=== PATIENT | female | born 1955 | race Caucasian/White ===

== ENCOUNTER 2024-05-08 05:24 | Inpatient (IN) | payer MEDICARE ==
[2024-05-07 11:54] LABS: BILIRUBIN,URINE NEGATIVE (Neg); CLARITY,URINE CLEAR (Clear); COLOR,URINE YELLOW (Yellow); GLUCOSE, URINE NEGATIVE (Neg); KETONES,URINE NEGATIVE (Neg); LEUKOCYTE ESTERASE ,URINE NEGATIVE (Neg); NITRITES, URINE NEGATIVE (Neg); OCCULT BLOOD,URINE NEGATIVE (Neg); PH,URINE 5.5 (4.8-8.0); PROTEIN,URINE NEGATIVE (Neg); UROBILINOGEN,URINE 0.2 E.U/dL (0.2-1.0)
[2024-05-07 11:55] LABS: UA COLLECTION TYPE CLN CATCH MIDSTREAM
[2024-05-07 11:59] LABS: BASOPHILS # (AUTO) 0.1 X10'3 (0-0.2); EOSINOPHILS # (AUTO) 0.3 X10'3 (0-0.9); EOSINOPHILS % (AUTO) 2.8 % (0-6); LYMPHOCYTES # (AUTO) 2.7 X10'3 (1.1-4.8); LYMPHOCYTES % (AUTO) 29.6 % (21-51); MEAN CORPUSCULAR HEMOGLOBIN 30.3 PG (27.0-31.0); MEAN CORPUSCULAR HGB CONC 33.3 g/dL (33.0-36.5); MEAN PLATELET VOLUME 8.2 FL (7.4-10.4); MONOCYTES % (AUTO) 11.3 % (2-12); NEUTROPHILS # (AUTO) 4.9 X10'3 (1.8-7.7); NEUTROPHILS % (AUTO) 55.3 % (42-75); PRE OP HEMATOCRIT 41.2 % (35.0-45.0); PRE OP HEMOGLOBIN 13.7 g/dL (12.0-16.0); PRE OP PLATELET COUNT 371 X10'3 (140-440); RED BLOOD COUNT 4.52 X10'6 (4.20-5.60); RED CELL DISTRIBUTION WIDTH 13.8 % (11.5-14.5)
[2024-05-07 12:08] LABS: PRE OP INR 1.1 INR; PRE OP PROTIME 11.4 SECONDS (9.0-12.0)
[2024-05-07 12:17] LABS: ALBUMIN 4.1 G/DL (3.4-5.0); ALBUMIN/GLOBULIN RATIO 1.2 (1.1-1.5); ALKALINE PHOSPHATASE 122 IU/L (46-116); BLOOD UREA NITROGEN 16 MG/DL (7-18); BUN/CREATININE RATIO 22.9 (10.0-20.0); CALCIUM 9.6 MG/DL (8.5-10.1); CHLORIDE 107 MMOL/L (99-107); PRE OP ALT 42 U/L (30-65); PRE OP ANION GAP 8 (8-16); PRE OP AST 20 U/L (10-37); PRE OP BILIRUB, TOTAL 0.5 MG/DL (0.0-1.0); PRE OP GLUCOSE 105 MG/DL (70-104); PRE OP POTASSIUM 3.9 MMOL/L (3.4-5.1); PRE OP SODIUM 144 MMOL/L (135-145); THYROID STIMULATING HORMONE 2.96 ulU/ml (0.34-4.50); TOTAL CARBON DIOXIDE 28.8 MMOL/L (24-32); TOTAL PROTEIN 7.6 G/DL (6.4-8.2); eGFR 83 ML/MIN
[~2024-05-08] VITALS: Ht 180.3 cm; Wt 123.8 kg
[2024-05-08] VITALS (36 sets, daily range): BP systolic 100–175; BP diastolic 50–81; PULSE 54–93; RESP 8–20; TEMP 97.4–97.8; O2SAT 82–100
[~2024-05-08 05:24] MED LIST: APIX5TAB3 PO; DILT360C24 PO; LEVO100T PO; LOSA50TA64 PO; PANT20TA18 PO
[2024-05-08] MEDS ORDERED: phenylephrine inj 50 MG in normal saline 250ml IV solN IV SCH (05:30)
[2024-05-08] MEDS ORDERED: ondansetron/PF 4mg/2ml inj IV PRN ×3 (05:30→08:20)
[2024-05-08] MEDS ORDERED: nitroPRUSSIDE (NIPRIDE) (200MCG/ML) 100ML Drip IV SCH (05:30)
[2024-05-08] MEDS: CEFAZOLIN 3GM/DEXTROSE 150mL 150 ML IV ONE (05:45)
[2024-05-08] MEDS: ringers solution, lacted 1,000 ML IV SCH (06:03)
[2024-05-08] MEDS: VANCOMYCIN/H2O 1.5g/300mL PB 300 ML IV ONE (06:04)
[2024-05-08] MEDS: famotidine 20mg tablet PO ONE (06:29)
[2024-05-08] MEDS ORDERED: protamine sulfate 10mg/ml inj. ONE (06:30)
[2024-05-08] MEDS ORDERED: heparin 1,000 UNITS/NS 500ml 1,500 ML ONE (06:49)
[2024-05-08] MEDS ORDERED: iohexol 350MG/ML 100ml bottle IV ONE (06:49)
[2024-05-08] MEDS ORDERED: LIDOcaine 1% 30ml preserv. free vial ONE (06:49)
[2024-05-08] MEDS ORDERED: iohexol 350 MG/ML 50ML vial IV ONE (06:53)
[2024-05-08] MEDS ORDERED: sevoflurane 250ml liquid IH ONE (07:12)
[2024-05-08] MEDS ORDERED: morphine 4 MG/ML inj SYRINge IV PRN (07:15)
[2024-05-08] MEDS ORDERED: labetalol 20mg/4ml (5mg/ml) syringe IV PRN ×2 (07:15→08:20)
[2024-05-08] MEDS ORDERED: ringers solution, lacted 1,000 ML IV SCH (07:15)
[2024-05-08] MEDS ORDERED: morphine 2 MG/ML inj. syringe IV PRN (07:15)
[2024-05-08] MEDS ORDERED: hydrALAZINE 20mg/ml inj. IV PRN ×2 (07:15→08:20)
[2024-05-08] MEDS ORDERED: fentaNYL/PF 50MCG/1 ML 2ML syringe ONE ×3 (07:20→07:56)
[2024-05-08] MEDS ORDERED: midazolam 1 mg/ML 2ml injection ONE (07:21)
[2024-05-08] MEDS ORDERED: rocuronium 10mg/ml inj IV ONE (07:22)
[2024-05-08] MEDS ORDERED: propofol inj 20 ML IV ONE (07:22)
[2024-05-08] MEDS ORDERED: LIDOcaine 2% (20mg/ml) 5ml vial ONE (07:22)
[2024-05-08] MEDS ORDERED: glycopyrrolate 0.2mg/ml inj ONE (07:33)
[2024-05-08] MEDS ORDERED: neostigmine methylsulfate 1 MG/ML 10ml vial ONE (07:33)
[2024-05-08] MEDS ORDERED: pantoprazole 40mg Tablet.DR PO SCH (08:00)
[2024-05-08] MEDS ORDERED: pantoprazole 40mg Tablet.DR PO PRN (08:20)
[2024-05-08] MEDS ORDERED: potassium CL 10mEq/100ml bag 100 ML IV PRN (08:20)
[2024-05-08] MEDS ORDERED: normal saline 1000ml 1,000 ML IV SCH (08:20)
[2024-05-08] MEDS ORDERED: acetaminophen 325mg tablet PO PRN (08:20)
[2024-05-08] MEDS ORDERED: docusate sod 100mg capsule PO PRN (08:20)
[2024-05-08] MEDS ORDERED: potassium Cl 40MEQ/1/2NS 520ml 520 ML IV PRN (08:20)
[2024-05-08] MEDS ORDERED: potassium Cl 20mEq/100mL bag 100 ML IV PRN (08:20)
[2024-05-08] MEDS ORDERED: magnesium sulf-water 2g/50mL 50 ML IV PRN (08:20)
[2024-05-08] MEDS ORDERED: proCHLORperazine 10 MG/2 ml inj IV PRN (08:20)
[2024-05-08] MEDS ORDERED: diphenhydrAMINE 25mg capsule PO PRN (08:20)
[2024-05-08] MEDS ORDERED: potassium Cl 20 mEq SR tablet PO PRN (08:20)
[2024-05-08] MEDS ORDERED: HYDROcodone/acetaminophen 5mg/325mg tablet PO PRN (08:20)
[2024-05-08] MEDS ORDERED: ALPRAZolam 0.25mg tablet PO PRN (08:20)
[2024-05-08] MEDS ORDERED: potassium Cl 40MEQ/270ML bag 250 ML IV PRN (08:20)
[2024-05-08] MEDS ORDERED: magnesium sulf-water 4G/100mL 100 ML IV PRN (08:20)
[2024-05-08] MEDS: ceFAZolin 1GM/D5W- ADD-VANTAGE 50 ML IV SCH (15:37)
[2024-05-08] MEDS ORDERED: sod chloride 0.9% 10ml flush syringe IV SCH (16:00)
[2024-05-08] MEDS: vancomycin inj 1,000 MG in normal saline 250ml IV soln 250 ML IV SCH (20:33)
[2024-05-09 02:00] VITALS: BP 120/47; PULSE 90; RESP 20; TEMP 97.4; O2SAT 93
[2024-05-09 07:00] VITALS: BP 130/57; PULSE 84; RESP 19; TEMP 97.4; O2SAT 95
[2024-05-09 07:01] LABS: BASOPHILS # (AUTO) 0.1 X10'3 (0-0.2); BASOPHILS % (AUTO) 0.7 % (0-1); EOSINOPHILS # (AUTO) 0.2 X10'3 (0-0.9); HEMATOCRIT 34.8 % (35.0-45.0); HEMOGLOBIN 11.8 g/dl (12.0-16.0); LYMPHOCYTES # (AUTO) 2.8 X10'3 (1.1-4.8); LYMPHOCYTES % (AUTO) 26.4 % (21-51); MEAN CORPUSCULAR HEMOGLOBIN 30.9 PG (27.0-31.0); MEAN CORPUSCULAR HGB CONC 33.8 g/dL (33.0-36.5); MEAN CORPUSCULAR VOLUME 91.4 FL (78-98); MEAN PLATELET VOLUME 8.4 FL (7.4-10.4); MONOCYTES # (AUTO) 1.4 X10'3 (0-0.9); MONOCYTES % (AUTO) 13.5 % (2-12); NEUTROPHILS # (AUTO) 6.1 X10'3 (1.8-7.7); NEUTROPHILS % (AUTO) 57.4 % (42-75); PLATELET COUNT 297 X10'3 (140-440); RED CELL DISTRIBUTION WIDTH 13.7 % (11.5-14.5); WHITE BLOOD COUNT 10.6 X10'3 (4.5-11.0)
[2024-05-09 07:06] LABS: INR 1.1 INR; PROTHROMBIN TIME 11.4 SECONDS (9.0-12.0)
[2024-05-09 07:17] LABS: ALANINE AMINOTRANSFERASE 31 U/L (12-78); ALBUMIN 3.3 G/DL (3.4-5.0); ALKALINE PHOSPHATASE 96 IU/L (46-116); ANION GAP 3 (8-16); ASPARTATE AMINO TRANSFERASE 19 U/L (10-37); BILIRUBIN,TOTAL 0.6 MG/DL (0.1-1.0); BLOOD UREA NITROGEN 16 MG/DL (7-18); CHLORIDE 109 MMOL/L (99-107); GLUCOSE 165 MG/DL (70-104); MAGNESIUM 1.8 MG/DL (1.5-2.4); PRO BRAIN NATRIURETIC PEPTIDE 227 PG/ML (0-125); SODIUM 140 MMOL/L (135-145); TOTAL PROTEIN 6.6 G/DL (6.4-8.2); eCRCL 75 ML/MIN; eGFR 71 ML/MIN
[2024-05-09 07:45] LABS: CALCIUM 8.6 MG/DL (8.5-10.1)
[2024-05-09] MEDS: diltiazem CD 180mg cap (once-daily) PO SCH (08:30)
[2024-05-09] MEDS: apixaban 5mg tablet PO SCH (08:30)
[2024-05-09] MEDS: losartan 50mg tablet PO SCH (08:31)
[2024-05-09] MEDS: levoTHYROXINE 100mcg tablet PO SCH (08:37)
[2024-05-09 11:00] VITALS: BP 121/61; PULSE 83; RESP 19; TEMP 97.6; O2SAT 95
== END 2024-05-09 13:10 | disposition home or self-care (01) | DRG 274 ==
LOC: PAS IN 05:24 → PCU 3S 18:30
PROVIDERS: ADMIT Student in an Organized Health Care Education/Training Program; ATTEND Student in an Organized Health Care Education/Training Program
PROC: B24BZZ4 Ultrasonography of Heart with Aorta, Transesophageal (ICD-10-PCS; 2024-05-08)
PROC: 02L73DK Occlusion of Left Atrial Appendage with Intraluminal Device, Percutaneous Approach (ICD-10-PCS; principal; 2024-05-08 07:12)
DX: I48.91 Unspecified atrial fibrillation (principal); Z00.6 Encounter for examination for normal comparison and control in clinical research program; E78.5 Hyperlipidemia, unspecified; E03.9 Hypothyroidism, unspecified; I10 Essential (primary) hypertension; I45.10 Unspecified right bundle-branch block
CPT/HCPCS: 33340; 36415; 71045; 71046; 76937; 80053; 81003; 82948; 83735; 83880; 84443; 85025; 85347; 85610; 85730; 86885; 86900; 86901; 86920; 87081; 93005; 93308; 93312; 93325; A4618; A6258; A6449; C1760; C1889; C1893; C1894; G0378; J0690; J1644; J2003; J2250; J2371; J2704; J2710; J2720; J3010; J3370; J3372; J3490; J7030; J7040; J7050; J7120; Q9967

== ENCOUNTER 2024-06-24 11:38 | Day surgery (SDC) | payer MEDICARE ==
[2024-06-24] VITALS (11 sets, daily range): BP systolic 118–172; BP diastolic 50–82; PULSE 57–87; RESP 12–15; TEMP 97.5; O2SAT 95–98
[~2024-06-24] VITALS: Ht 180.3 cm; Wt 121.1 kg
[2024-06-24 12:37] LABS: BASOPHILS # (AUTO) 0.1 X10'3 (0-0.2); EOSINOPHILS # (AUTO) 0.2 X10'3 (0-0.9); EOSINOPHILS % (AUTO) 2.6 % (0-6); HEMATOCRIT 40.6 % (35.0-45.0); HEMOGLOBIN 13.2 g/dl (12.0-16.0); LYMPHOCYTES # (AUTO) 3.4 X10'3 (1.1-4.8); LYMPHOCYTES % (AUTO) 37.6 % (21-51); MEAN CORPUSCULAR HEMOGLOBIN 29.6 PG (27.0-31.0); MEAN CORPUSCULAR HGB CONC 32.6 g/dL (33.0-36.5); MEAN CORPUSCULAR VOLUME 90.8 FL (78-98); MEAN PLATELET VOLUME 8.4 FL (7.4-10.4); MONOCYTES # (AUTO) 0.9 X10'3 (0-0.9); MONOCYTES % (AUTO) 10.3 % (2-12); NEUTROPHILS # (AUTO) 4.4 X10'3 (1.8-7.7); NEUTROPHILS % (AUTO) 48.5 % (42-75); PLATELET COUNT 372 X10'3 (140-440); RED BLOOD COUNT 4.47 X10'6 (4.20-5.60); RED CELL DISTRIBUTION WIDTH 13.5 % (11.5-14.5); WHITE BLOOD COUNT 9.1 X10'3 (4.5-11.0)
[2024-06-24 12:52] LABS: ALBUMIN 3.9 G/DL (3.4-5.0); ANION GAP 10 (8-16); BLOOD UREA NITROGEN 13 MG/DL (7-18); BUN/CREATININE RATIO 21.3 (10.0-20.0); CALCIUM 9.3 MG/DL (8.5-10.1); CHLORIDE 106 MMOL/L (99-107); CREATININE 0.61 MG/DL (0.40-0.90); GLUCOSE 104 MG/DL (70-104); POTASSIUM 4.2 MMOL/L (3.5-5.1); SODIUM 141 MMOL/L (135-145); TOTAL CARBON DIOXIDE 24.9 MMOL/L (24-32); eCRCL 99 ML/MIN; eGFR > 90 ML/MIN
[2024-06-24 12:56] LABS: APTT 29 SECONDS (22-32); PROTHROMBIN TIME 10.9 SECONDS (9.0-12.0)
[2024-06-24] MEDS: MIDAZolam 1mg/ml 10ml vial IV ONE (13:27)
[2024-06-24] MEDS: fentaNYL/PF 50MCG/1 ML 2ML syringe IV ONE (13:27)
[2024-06-24] MEDS ORDERED: CLOP75TA34 PO (13:46)
[2024-06-24] MEDS ORDERED: ASPI81TA52 PO (13:46)
== END 2024-06-24 14:45 | disposition home or self-care (01) ==
LOC: SSTAY O 11:38
PROVIDERS: ATTEND Student in an Organized Health Care Education/Training Program
DX: I48.91 Unspecified atrial fibrillation (principal); I10 Essential (primary) hypertension; E03.9 Hypothyroidism, unspecified; M19.90 Unspecified osteoarthritis, unspecified site; Z79.899 Other long term (current) drug therapy
CPT/HCPCS: 36415; 80048; 85025; 85610; 85730; 93312; 93325; A4615; J2250; J3010; J7030